=== PATIENT | female | born 1960 | race Caucasian/White ===

== ENCOUNTER 2017-10-19 21:27 | Inpatient (IN) | payer OTHER ==
[~2017-10-19] VITALS: Ht 172.7 cm; Wt 103.5 kg
[~2017-10-19 21:27] MED LIST: ADVIL200 MG PO; ATARAX,VISTARIL25 MG PO; CALCIUM 500 +1 EACH PO; CRESTOR5 MG PO; ERYTHROMYC1 APPLICAT BOTH EYES; FEOSOL325 MG PO; FISH OIL 1,0001 EAC7 PO; GINKGO BILOBA120 M1 PO; KLONOPIN0.5 M1 PO; LITE COAT ASPI325 M1 PO; LMX 530 GM TP; MOBIC15 MG PO; NEURONTIN300 MG PO; ONE DAILY MULT1 EACH PO; TYLENOL REGULA325 MG PO; ULTRAM50 MG PO; VITAMIN D400 UNIT PO; VITAMIN E400 UNIT PO; VOLTAREN 1% GE100 GM TP
[2017-10-20 08:01] VITALS: BP 121/74
[2017-10-20 13:21] VITALS: BP 121/76
[2017-10-20 16:05] VITALS: BP 125/78
[2017-10-20 20:32] VITALS: BP 121/79
[2017-10-21 00:07] VITALS: BP 110/75
[2017-10-21 04:20] VITALS: BP 101/58
[2017-10-21] MEDS ORDERED: BENADRYL25 MG PO (10:33)
[2017-10-21] MEDS ORDERED: HYDROMORPHONE HC2 MG PO (10:35)
[2017-10-21] MEDS ORDERED: ELIQUIS2.5 MG PO (10:35)
[2017-10-21] MEDS ORDERED: SENNA PLUS TAB1 EACH PO (10:35)
[2017-10-21 12:00] VITALS: BP 154/78
[2017-10-21 15:38] VITALS: BP 119/78
== END 2017-10-21 15:57 | disposition home health service (06) | DRG 470 ==
LOC: ENRESERV 21:27 → 2SOUTH 10-20 07:07 → 3WEST 10-20 13:08 → 2SOUTH 10-20 14:09 → 3WEST 10-21 15:57
PROC: 0SRD0J9 Replacement of Left Knee Joint with Synthetic Substitute, Cemented, Open Approach (ICD-10-PCS; principal; 2017-10-20)
DX: M17.12 Unilateral primary osteoarthritis, left knee (principal); Z86.79 Personal history of other diseases of the circulatory system
CPT/HCPCS: 97530 GP; C1713; J0131; J0690; J1100; J1885; J2250; J2405; J3010; J7050; J7120; L1820; Q0177; S0020

== ENCOUNTER 2018-01-11 21:47 | Inpatient (IN) | payer OTHER ==
[~2018-01-11] VITALS: Ht 172.7 cm; Wt 101.2 kg
[~2018-01-11 21:47] MED LIST changes: +B-COMPLEX-VITA1 EACH PO; +BENADRYL25 MG PO; +ELIQUIS2.5 MG PO; +HYDROMORPHONE HC2 MG PO; +SENNA PLUS TAB1 EACH PO
[2018-01-12] MEDS ORDERED: ASPIRIN325 MG PO (07:44)
[2018-01-12 08:01] VITALS: BP 132/82
[2018-01-12 15:09] VITALS: BP 154/73
[2018-01-12 20:05] VITALS: BP 114/76
[2018-01-13 00:10] VITALS: BP 125/64
[2018-01-13 04:03] VITALS: BP 111/71
[2018-01-13 06:41] LABS: CHLORIDE 108 MEQ/L (99-109); CREATININE 0.6 MG/DL (0.6-1.3); GFR ESTIMATE (CALCULATED) > 59 mL/min/; GLUCOSE 124 mg/dL (70-99); POTASSIUM 4.1 MEQ/L (3.7-5.4); SODIUM 144 MEQ/L (136-147); UREA NITROGEN (BUN) 14 mg/dL (9-23)
[2018-01-13 08:01] VITALS: BP 122/80
[2018-01-13] MEDS ORDERED: BENADRYL25 MG PO (09:16)
[2018-01-13] MEDS ORDERED: ELIQUIS2.5 MG PO (09:18)
[2018-01-13 12:05] VITALS: BP 163/95
== END 2018-01-13 14:30 | disposition home health service (06) | DRG 470 ==
LOC: ENRESERV 21:47 → 2SOUTH 01-12 06:46 → 3WEST 01-12 14:48 → 2SOUTH 01-12 10:03
PROVIDERS: Orthopaedic Surgery
PROC: 0SRC0J9 Replacement of Right Knee Joint with Synthetic Substitute, Cemented, Open Approach (ICD-10-PCS; principal; 2018-01-12)
DX: M17.11 Unilateral primary osteoarthritis, right knee (principal); E78.00 Pure hypercholesterolemia, unspecified; F41.9 Anxiety disorder, unspecified; F32.9 Major depressive disorder, single episode, unspecified; Z96.641 Presence of right artificial hip joint; Z96.652 Presence of left artificial knee joint; E66.9 Obesity, unspecified; Z68.34 Body mass index [BMI] 34.0-34.9, adult; Z86.718 Personal history of other venous thrombosis and embolism; Z79.82 Long term (current) use of aspirin
CPT/HCPCS: 80048; 85014; 85018; C1713; J0131; J0690; J1885; J2250; J2405; J2704; J2795; J3010; J7050; L1820; S0020